=== PATIENT | female | born 1940 | race Caucasian/White ===

== ENCOUNTER 2020-08-19 12:45 | Observation (INO) | payer MEDICARE, SELFPAY ==
[2020-08-19] VITALS (10 sets, daily range): BP systolic 140–195; BP diastolic 62–119; PULSE 65–81; RESP 18–27; TEMP 36.7; O2SAT 93–97; BMI 31.6
--- NOTE | 2020-08-19 12:59 | CT_ITS ---
WS: [id number] CT HEAD NONCONTRAST HISTORY: Symptoms of Acute Stroke TECHNIQUE: Contiguous axial imaging performed through the brain in 2.5 mm imaging. Bone and soft tiss ue windows. Sagittal and coronal reformats reviewed. All CT scans at [facility] use at ast one of these dose optimization techniques: automated exposure control; mA and/or kV adjustment pe r patient size (includes targeted exams where dose is matched to clinical indication); or iterative r econstruction. DLP: 833.06 mGy.cm COMPARISON: MRI 11/10/[address] 10/21/2016 No acute intracranial hemorrhage, midline shift or mass effect. Moderate to severe atrophy and chronic ischemic changes. Small lacunar infarcts in the external capsu les and basal ganglia bilaterally. Not significantly changed since 2017. Mild bilateral cerebellar at rophy. Ventricles: Normal size with no hydrocephalus. Paranasal sinuses: As visualized are clear. Mastoid air cells: Well pneumatized. Calvarium and scalp: Skull is intact with no soft tissue edema or swelling. CT/CT head wo con* [id number] IMPRESSION: 1. No acute intracranial hemorrhage or edema. 2. Moderate to severe atrophy with chronic ischemic changes. Notified Mickey Addison MD at 08/19/2020 1:15 PM.
--- NOTE | 2020-08-19 12:59 | ECG_ITS ---
[facility] Test Date: 2020-08-19 Pat Name: Esther Miller Department: Room: Gender: Female Corporate Trainer: : 1940 Requested By: Mickey Addison Order Number: [id number] Richard MD: Rafal Kim M.D. Measurements Intervals [place] Rate: 79 P: 44 SC: 181 QRS: 66 QRSD: 92 T: 41 QT: 366 QTc: 420 Interpretive Statements SINUS RHYTHM POSSIBLE INFERIOR MYOCARDIAL INFARCTION , PROBABLY OLD [30 ms Q WAVE IN II/aVF] Compared to ECG 10/21/2016 16:58:21 No significant changes Electronically Signed On 08-19-2020 17:58:04 NURSE EDUCATOR by Rafal Kim M.D. [id number]
--- NOTE | 2020-08-19 12:59 | XR_ITS ---
WS: [id number] Portable AP semiupright chest, 08/19/2020 Clinical Data: altered mental status Comparison: Portable chest, 10/21/2016. Findings: No nodules, masses or effusions are seen. The heart is normal. The pulmonary vascularity is not increased. No pneumonia or pneumothorax is seen. The aortic arch and descending aorta show calci fication and tortuosity. Degenerative change of both shoulders is noted. XR/XR chest 1V portable [id number] Impression: Atherosclerosis.
--- NOTE | 2020-08-19 13:04 | ED_ITS ---
HPI - Neuro Symptoms/Deficit General: Chief Complaint: Neuro Symptoms/Deficit Stated Complaint: NEURO SYMPTOMS/THINKS HAD STROKE Time Seen by Provider: 08/19/20 12:58 History of Present Illness: HPI Narrative: The patient is a 80-year-old female who comes to the ER with right-sided facial droop and altered mental status. She has a history of Alzheimer's dementia, hypertension. Her says approximately 2-3 hours ago at home she began to act funny and not respond to her. She then kind of slumped over towards her right side and he brought her to the hospital. In the ER she is altered and has a right-sided facial droop. Denies previous stroke history Timing confirmed by: family member Location: right face History of same: No Severity: severe Quality: weak Review of Systems General: Reports: ROS unobtainable due to medical condition and ROS unobtainable due to mental status [facility] ED PFSH: Medical History Dementia HTN (hypertension) Surgical History Surgical history unknown Family History Other Family history unknown Social History Smoking and tobacco status: former smoker Alcohol intake: current Alcohol intake frequency: holidays/special occasions only Substance/Drug Use: never Lives independently: No Household members: spouse Marital status: Physical Exam Const: COMMON NORMALS: alert GENERAL APPEARANCE: anxious and combative ORIENTATION/CONSCIOUSNESS: Yes awake, Yes confused and Yes Other orientation findings (acute delirium, combative.) HENMT: COMMON NORMALS: normocephalic, external ears normal and Normal external nose present HEAD & SCALP: normal to inspection and normocephalic NOSE: Normal external nose present EXTERNAL EAR: Yes external ears normal MOUTH: Normal oral and palatal mucosa present THROAT: posterior oropharynx normal Eye: COMMON NORMALS: Equal, round and reactive pupils present and EOMs intact bilaterally GENERAL EYE: appearance normal, both eyes and all related structures PUPIL: Yes Equal, round and reactive pupils present Neck/C-Spine: COMMON NORMALS: full ROM, no lymphadenopathy, no meningeal signs and no JVD GENERAL: Yes normal visual inspection Lymph: LYMPHATIC: no lymphadenopathy noted Chest: COMMONS NORMALS: normal inspection of the chest and normal palpation of entire chest wall Resp: COMMON NORMALS: normal respiratory effort, No retractions, No use of accessory muscles, clear to auscultation bilaterally and percussion normal EFFORT & INSPECTION: Yes able to speak in complete sentences AUSCULTATION: clear to auscultation bilaterally PERCUSSION: percussion normal Cardio: COMMON NORMALS: no JVD, regular rate, regular rhythm, S1 normal heart sound present, S2 normal heart sound present and Peripheral pulses 2+ throughout RATE: regular rate RHYTHM: regular rhythm HEART SOUNDS: S1 normal heart sound present and S2 normal heart sound present PERIPHERAL PULSES: Peripheral pulses 2+ throughout GI: COMMON NORMALS: Normal to inspection, nondistended, normoactive bowel sounds present, Soft to palpation, non-tender and no masses INSPECTION: Yes normal to inspection PALPATION: Yes Soft to palpation : COMMON NORMALS: Yes no CVA tenderness BLADDER/KIDNEY EXAM: Yes no CVA tenderness Back/Pelvis: COMMON NORMALS: no CVA tenderness, thoracic and lumbar spine normal to inspection, no thoracic nor lumbar tenderness and thoraco-lumbar ROM normal Extremity: COMMON NORMALS: normal to inspection, full ROM, capillary refill normal, no joint enlargement and no pedal edema GENERAL: Yes normal exam except as noted Neuro: COMMON NORMALS: CN's II-XII intact bilaterally, moves all extremities, no focal motor deficits, no sensory deficits noted and gait normal SENSORIUM/ORIENTATION: Yes alert MENINGEAL SIGNS: Yes no meningeal signs OTHER: She came in initially acutely delirious. She has full strength in all extremities and she is wincing her face to the right. The initial thought was that this is possibly a facial droop but after she calmed down it completely resolved and she 30 minutes later was completely normal and answering questions alert and oriented x3. Psych: COMMON NORMALS: speech normal ATTITUDE: Yes uncooperative, Yes agitated and Yes Other attitude/behavior findings present (Psych) (Acute deliriu m) SPEECH: Yes normal speech Skin: COMMON NORMALS: no rashes or lesions noted GENERAL SKIN EXAM: no rashes or lesions noted Course Vital Signs: Vital signs: Vital Signs Temperature 98.0 F 08/19/20 12:59 Pulse Rate 79 08/19/20 18:22 Respiratory Rate 27 H 08/19/20 18:22 Blood Pressure 195/80 08/19/20 16:00 Pulse Oximetry 96 08/19/20 18:22 MDM - Neuro Symptoms/Deficit MDM Narrative: Medical decision making narrative: The patient came Roxanne initially as a stroke protocol with possible right facial droop. She has full power in her extremities and after 30 minutes it was clear she was wincing with her face to the right, not drooping. After her delirium resolved and she calm down she was alert and oriented x3 answering questions. While resting waiting for lab test she had an episode where she was satting 70% on room air for unknown reasons. Testing did not find any acute reasons for this and I thought she could benefit for observation in the hospital. Discussed with Dr. Kim who accepted her care. Lab Data: Labs: Lab Results 08/19/20 08/19/20 08/19/20 Range/Units 11:20 13:00 13:00 WBC 9.0 (4.0-10.0) 10^3/ uL RBC 5.21 (4.1-5.3) 10^6/u L Hgb 15.6 H (11.5-15.3) g/dL Hct 46.4 (37.0-47.0) % MCV 89.1 (81-99) fL MCH 29.9 (28.0-34.0) pg MCHC 33.6 (30.0-36.0) g/dL RDW 12.3 (12.1-15.1) % Plt Count 241 (130-400) 10^3/c mm MPV 9.9 (7.4-10.4) fL Neut % (Auto) 65.8 % Lymph % (Auto) 24.4 % [place] % (Auto) 8.4 % Eos % (Auto) 0.7 % Baso % (Auto) 0.4 % Neut # (Auto) 5.93 (1.8-7.7) 10^3/u L Lymph # (Auto) 2.2 (0.8-4.8) 10^3/u L [place] # (Auto) 0.8 (0.2-0.9) 10^3/u L Eos # (Auto) 0.1 (0.0-0.8) 10^3/u L Baso # (Auto) 0.0 (0.0-0.1) 10^3/u L Nucleated RBC % (a uto) 0 % Nucleated RBCs # 0.0 /100WBC PT 13.00 (12.1-14.9) SECO NDS INR 0.95 (0.8-1.2) APTT 32.5 (23.9-36.7) SECO NDS D-Dimer (0-0.59) ug/mIFE U Specimen Type Sample Site ABG pH (7.35-7.45) ABG pCO2 (35-45) mmHg ABG pO2 (80.0-100.0) mmH g ABG HCO3 (22-26) mmol/L ABG O2 Saturation ABG Base Excess (-2.0-2.0) mmol/ L Joseph Test A-a O2 Gradient (5-10) mmHg Hematocrit (37-47) % Hgb O2 Saturation (95-100) % Carboxyhemoglobin (0.4-20.1) %THgb Methemoglobin (0.4-1.5) % Total Hemoglobin (12-16) g/dL Ionized Calcium (1.1-1.4) mmol/L O2 Delivery Device O2 Liters/Min % FiO2 % Credit Officer ID Sodium (136-145) mmol/L Potassium (3.5-5.1) mmol/L Chloride (98-107) mmol/L Carbon Dioxide (22-29) mmol/L Anion Gap (5-19) BUN (8-23) mg/dL Creatinine (0.5-0.9) mg/dL GFR Calculation Glucose (65-115) mg/dL Calculated Osmolal ity (285-295) mOsm/k g Calcium (8.5-10.5) mg/dL Total Bilirubin (0.15-1.2) mg/dL AST (0-32) U/L ALT (0-33) U/L Alkaline Phosphata se (35-105) IU/L Total Protein (6.6-8.7) g/dL Albumin (3.5-5.2) g/dL Globulin (1.3-4.6) g/dL Urine Color Yellow (Yellow) Urine Appearance Clear (CLEAR) Urine pH 5.0 (5-7) Ur Specific Gravit y 1.020 (1.005-1.030) Urine Protein Neg (Negative) Urine Glucose (UA) Norm (Normal) Urine Ketones 1+ H (Negative) Urine Blood Neg (Negative) Urine Nitrate Negative (Negative) Urine Bilirubin Neg (Negative) Urine Urobilinogen Norm (Negative) mg/dL Ur Leukocyte Dionne ase Negative (Negative) Urine Opiates Scre en (Negative) ng/mL Ur Barbiturates Sc reen (Negative) ng/mL Ur Phencyclidine S crn (Negative) ng/mL Ur Amphetamines Sc reen (Negative) ng/mL U Benzodiazepines Scrn (Negative) ng/mL Urine Cocaine Scre en (Negative) ng/mL U Marijuana (THC) Screen (Negative) ng/mL SARS-CoV-2 Ag (Rap id) (Negative) 08/19/20 08/19/20 08/19/20 Range/Units 13:00 13:00 13:48 WBC (4.0-10.0) 10^3/ uL RBC (4.1-5.3) 10^6/u L Hgb (11.5-15.3) g/dL Hct (37.0-47.0) % MCV (81-99) fL MCH (28.0-34.0) pg MCHC (30.0-36.0) g/dL RDW (12.1-15.1) % Plt Count (130-400) 10^3/c mm MPV (7.4-10.4) fL Neut % (Auto) % Lymph % (Auto) % [place] % (Auto) % Eos % (Auto) % Baso % (Auto) % Neut # (Auto) (1.8-7.7) 10^3/u L Lymph # (Auto) (0.8-4.8) 10^3/u L [place] # (Auto) (0.2-0.9) 10^3/u L Eos # (Auto) (0.0-0.8) 10^3/u L Baso # (Auto) (0.0-0.1) 10^3/u L Nucleated RBC % (a uto) % Nucleated RBCs # /100WBC PT (12.1-14.9) SECO NDS INR (0.8-1.2) APTT (23.9-36.7) SECO NDS D-Dimer 0.43 (0-0.59) ug/mIFE U Specimen Type Sample Site ABG pH (7.35-7.45) ABG pCO2 (35-45) mmHg ABG pO2 (80.0-100.0) mmH g ABG HCO3 (22-26) mmol/L ABG O2 Saturation ABG Base Excess (-2.0-2.0) mmol/ L Joseph Test A-a O2 Gradient (5-10) mmHg Hematocrit (37-47) % Hgb O2 Saturation (95-100) % Carboxyhemoglobin (0.4-20.1) %THgb Methemoglobin (0.4-1.5) % Total Hemoglobin (12-16) g/dL Ionized Calcium (1.1-1.4) mmol/L O2 Delivery Device O2 Liters/Min % FiO2 % Credit Officer ID Sodium 140 (136-145) mmol/L Potassium 4.9 (3.5-5.1) mmol/L Chloride 103 (98-107) mmol/L Carbon Dioxide 28 (22-29) mmol/L Anion Gap 13.9 (5-19) BUN 17 (8-23) mg/dL Creatinine 1.0 H (0.5-0.9) mg/dL GFR Calculation Not Reportable Glucose 91 (65-115) mg/dL Calculated Osmolal ity 291 (285-295) mOsm/k g Calcium 10.4 (8.5-10.5) mg/dL Total Bilirubin 0.5 (0.15-1.2) mg/dL AST 13 (0-32) U/L ALT 9 (0-33) U/L Alkaline Phosphata se 84 (35-105) IU/L Total Protein 6.7 (6.6-8.7) g/dL Albumin 4.0 (3.5-5.2) g/dL Globulin 2.7 (1.3-4.6) g/dL Urine Color (Yellow) Urine Appearance (CLEAR) Urine pH (5-7) Ur Specific Gravit y (1.005-1.030) Urine Protein (Negative) Urine Glucose (UA) (Normal) Urine Ketones (Negative) Urine Blood (Negative) Urine Nitrate (Negative) Urine Bilirubin (Negative) Urine Urobilinogen (Negative) mg/dL Ur Leukocyte Dionne ase (Negative) Urine Opiates Scre en Negative (Negative) ng/mL Ur Barbiturates Sc reen Negative (Negative) ng/mL Ur Phencyclidine S crn Negative (Negative) ng/mL Ur Amphetamines Sc reen Negative (Negative) ng/mL U Benzodiazepines Scrn Negative (Negative) ng/mL Urine Cocaine Scre en Negative (Negative) ng/mL U Marijuana (THC) Screen Negative (Negative) ng/mL SARS-CoV-2 Ag (Rap id) (Negative) 08/19/20 08/19/20 Range/Units 15:08 16:00 WBC (4.0-10.0) 10^3/ uL RBC (4.1-5.3) 10^6/u L Hgb (11.5-15.3) g/dL Hct (37.0-47.0) % MCV (81-99) fL MCH (28.0-34.0) pg MCHC (30.0-36.0) g/dL RDW (12.1-15.1) % Plt Count (130-400) 10^3/c mm MPV (7.4-10.4) fL Neut % (Auto) % Lymph % (Auto) % [place] % (Auto) % Eos % (Auto) % Baso % (Auto) % Neut # (Auto) (1.8-7.7) 10^3/u L Lymph # (Auto) (0.8-4.8) 10^3/u L [place] # (Auto) (0.2-0.9) 10^3/u L Eos # (Auto) (0.0-0.8) 10^3/u L Baso # (Auto) (0.0-0.1) 10^3/u L Nucleated RBC % (a uto) % Nucleated RBCs # /100WBC PT (12.1-14.9) SECO NDS INR (0.8-1.2) APTT (23.9-36.7) SECO NDS D-Dimer (0-0.59) ug/mIFE U Specimen Type Arterial Sample Site Radial, right ABG pH 7.42 (7.35-7.45) ABG pCO2 40.7 (35-45) mmHg ABG pO2 146.0 H (80.0-100.0) mmH g ABG HCO3 26.4 H (22-26) mmol/L ABG O2 Saturation 99.7 ABG Base Excess 1.7 (-2.0-2.0) mmol/ L Joseph Test Pos A-a O2 Gradient 7.7 (5-10) mmHg Hematocrit 48.0 H (37-47) % Hgb O2 Saturation 98.8 (95-100) % Carboxyhemoglobin 0.6 (0.4-20.1) %THgb Methemoglobin 0.2 L (0.4-1.5) % Total Hemoglobin 15.7 (12-16) g/dL Ionized Calcium 1.3 (1.1-1.4) mmol/L O2 Delivery Device Nc O2 Liters/Min 4.0 % FiO2 36.0 % Credit Officer ID Gd Sodium 141.0 (136-145) mmol/L Potassium 3.6 (3.5-5.1) mmol/L Chloride (98-107) mmol/L Carbon Dioxide (22-29) mmol/L Anion Gap (5-19) BUN (8-23) mg/dL Creatinine (0.5-0.9) mg/dL GFR Calculation Glucose 94.0 (65-115) mg/dL Calculated Osmolal ity (285-295) mOsm/k g Calcium (8.5-10.5) mg/dL Total Bilirubin (0.15-1.2) mg/dL AST (0-32) U/L ALT (0-33) U/L Alkaline Phosphata se (35-105) IU/L Total Protein (6.6-8.7) g/dL Albumin (3.5-5.2) g/dL Globulin (1.3-4.6) g/dL Urine Color (Yellow) Urine Appearance (CLEAR) Urine pH (5-7) Ur Specific Gravit y (1.005-1.030) Urine Protein (Negative) Urine Glucose (UA) (Normal) Urine Ketones (Negative) Urine Blood (Negative) Urine Nitrate (Negative) Urine Bilirubin (Negative) Urine Urobilinogen (Negative) mg/dL Ur Leukocyte Dionne ase (Negative) Urine Opiates Scre en (Negative) ng/mL Ur Barbiturates Sc reen (Negative) ng/mL Ur Phencyclidine S crn (Negative) ng/mL Ur Amphetamines Sc reen (Negative) ng/mL U Benzodiazepines Scrn (Negative) ng/mL Urine Cocaine Scre en (Negative) ng/mL U Marijuana (THC) Screen (Negative) ng/mL SARS-CoV-2 Ag (Rap id) Negative (Negative) Discharge Plan Discharge Patient Disposition: Admitted As Inpatient Admit Provider: Hugh Guzman Clinical Impression: Altered mental status, Hypoxia, Delirium Condition: Stable Coding Level of Care Code ED Roofing Contractor for Spenser Martínez
[2020-08-19 13:11] LABS: Basophils % 0.4 %; Eosinophils # 0.1 10^3/uL (0.0-0.8); Eosinophils % 0.7 %; Hematocrit 46.4 % (37.0-47.0); Hemoglobin 15.6 g/dL (11.5-15.3); Lymphocytes # 2.2 10^3/uL (0.8-4.8); Lymphocytes % 24.4 %; Mean Corpuscular HGB Conc 33.6 g/dL (30.0-36.0); Mean Corpuscular Hemoglobin 29.9 pg (28.0-34.0); Mean Corpuscular Volume 89.1 fL (81-99); Mean Platelet Volume 9.9 fL (7.4-10.4); Monocytes # 0.8 10^3/uL (0.2-0.9); Monocytes % 8.4 %; Neutrophils # 5.93 10^3/uL (1.8-7.7); Neutrophils % 65.8 %; Nucleated Red Blood Cells % 0 %; Platelet Count 241 10^3/cmm (130-400); Red Blood Count 5.21 10^6/uL (4.1-5.3); Red Cell Distribution Width 12.3 % (12.1-15.1)
[2020-08-19 13:39] LABS: INR 0.95 (0.8-1.2)
[2020-08-19 13:40] LABS: Partial Thromboplastin Time 32.5 SECONDS (23.9-36.7)
[2020-08-19 13:53] LABS: Add Urine Microscopic? NO
[2020-08-19 14:23] LABS: Glucose Urine UA Norm (Normal); Protein Urine Neg (Negative); Urine Appearance Clear (CLEAR); Urine Color Yellow (Yellow)
[2020-08-19 14:24] LABS: Bilirubin Urine Neg (Negative); Blood Urine Neg (Negative); Ketones Urine 1+ (Negative); Leukocyte Esterase Urine Negative (Negative); Nitrate Urine Negative (Negative); Urobilinogen Urine Norm (Negative)
--- NOTE | 2020-08-19 14:42 | PC.NURSE ---
pt awake and O2 saturation 72% on room air. This nurse applied NC 4L and notified ED provider. ED provider in room
[2020-08-19 14:44] LABS: Alanine Aminotransferase 9 U/L (0-33); Alkaline Phosphatase 84 IU/L (35-105); Anion Gap 13.9 (5-19); Aspartate Amino Transferase 13 U/L (0-32); Blood Urea Nitrogen 17 mg/dL (8-23); Calcium 10.4 mg/dL (8.5-10.5); Carbon Dioxide 28 mmol/L (22-29); Chloride 103 mmol/L (98-107); Globulin 2.7 g/dL (1.3-4.6); Glucose 91 mg/dL (65-115); Osmolality Calculated 291 mOsm/kg (285-295); Potassium 4.9 mmol/L (3.5-5.1); Sodium 140 mmol/L (136-145); Total Bilirubin 0.5 mg/dL (0.15-1.2); Total Protein 6.7 g/dL (6.6-8.7)
--- NOTE | 2020-08-19 14:50 | PC.NURSE ---
Assisted patient to bedside commode and back to bed, with little to no difficulty.
[2020-08-19 14:59] LABS: Amphetamines Screen Urine Negative (Negative); Barbiturates Screen Urine Negative (Negative); Benzodiazepines Screen Urine Negative (Negative); Cocaine Screen Urine Negative (Negative); Opiate Screen Urine Negative (Negative); PCP Screen Urine Negative (Negative); THC Screen Urine Negative (Negative)
--- NOTE | 2020-08-19 15:17 | PC.NURSE ---
RT and nurse manager winter at bedside with patient and visitor.
[2020-08-19 15:23] LABS: ABG PCO2 40.7 mmHg (35-45); ABG PH Result 7.42 (7.35-7.45); Alveolar-Arterial Oxygen Gradi 7.7 mmHg (5-10); Base Excess ABG 1.7 mmol/L (-2.0-2.0); Blood Gas Allen Test Pos; Blood Gas Operator Identificat GD; Blood Gas Sample Site Radial, right; Blood Gas Sample Type Arterial; Carboxyhemoglobin 0.6 %THgb (0.4-20.1); HCO3 ABG 26.4 mmol/L (22-26); HGB O2 Sat 98.8 % (95-100); Ionized Calcium Level - ABG 1.3 mmol/L (1.1-1.4); Methemoglobin 0.2 % (0.4-1.5); Oxygen Device NC; Oxygen Saturation ABG 99.7; Potassium Level - ABG 3.6 mmol/L (3.5-5.0); Total Hemoglobin 15.7 g/dL (12-16)
[2020-08-19 17:12] LABS: D Dimer 0.43 ug/mIFEU (0-0.59)
[2020-08-19 17:20] LABS: SARS Covid-2 Antigen Negative (Negative)
--- NOTE | 2020-08-19 17:46 | P.HP_ITS ---
Providers/Chief Complaint Primary Care Provider: Micky Liz MD Chief Complaint: NEURO SYMPTOMS/THINKS HAD STROKE History of Present Illness Pleasant 80-year-old lady with Alzheimer's dementia, reported hypertension was brought for evaluation to ER after episode of change of mental status, reported noted not acting right at home, not responding to her . Reportedly then slumped over and so he brought her to the hospital. During my visit she is in the room by herself, she is awake, alert, confused about what city she is in, and does not remember the year. She knows she is in the hospital. She is not entirely sure why she is in the hospital. Her is not at the bedside, and unfortunately could not reach him nor the other family listed by phone. The risks reported possible brief convulsive episode at home. It appears that for prolonged time in ER she had decreased responsiveness, somewhat glazed over lo ok, with confusion. Transiently also noted hypoxia during that time down into the 70s on room air. She normally does not use supplemental oxygen. This had resolved, and she has subsequently had good oxygenation. She herself denies any complaints currently. She denies any trouble breathing, and states that if she would she would tell us. She denies any headache, any dizziness, nausea, vomiting, any vision changes. No chest pain or pressure. With otherwise unremarkable review of systems as below. She is fully alert, conversant, asking questions about how she may call for help if she needs it, and how to turn on and off the TV set. She does not remember having history of seizures, although home medications do list Keppra. As far as she knows she does not take any medications. CT of the head in ER with finding of moderate to severe atrophy with chronic ischemic changes, without acute hemorrhage or edema. Small lacunar infarcts in external capsules and basal ganglia bilaterally unchanged since 2017. Chest x- ray shows atherosclerosis. EKG with sinus rhythm, without acute findings. Possible Q wave in 2/aVF. She is afebrile. Blood pressure with 1 elevated episode 195/80, otherwise 140s-170s systolic. There is no leukocytosis, or major normality on CBC. Coagulation panel is normal including D-dimer. ABG 7.42/40 point 7/146/20 6.4. Sodium is 140. Creatinine 1. Otherwise unremarkable CMP. Urinalysis unremarkable. Urine drug screen unremarkable. Rapid COVID-19 negative. Keppra level pending. Observation service in the hospital due to transient decrease in saturation which is unexplained without normal requirement for supplemental oxygen in addition to transient alteration in mental status. Review of Systems Const: Denies: fever(s), chills, body aches or malaise Eyes: Denies: change in vision or eye redness ENMT: Denies: throat pain, oral sores or ear or mastoid pain Card: Denies: chest pain, edema, pre-syncope or dyspnea on exertion Resp: Denies: dyspnea, productive cough, change in phlegm color or hemoptysis GI: Denies: abdominal pain, nausea, vomiting, diarrhea, constipation, hematochezia or melena : Denies: flank pain, urinary frequency or hematuria Musc: Denies: back pain, joint swelling or joint redness Skin/Breast: Denies: rash, sores or new lesions Neuro: Denies: headache(s), numbness in extremities, weakness in extremities, dizziness, confusion or seizure-like activity Endo: Denies: polyuria or polydipsia Carlos/Lymph: Denies: easy bleeding or purpura All/Imm: Denies: urticaria, throat swelling or tongue swelling Medications/Allergies Home Medications Medication Instructions Recorded Confirmed Last Taken Type aspirin 81 mg PO DAILY@08/19/20 08/19/20 08/19/20 History levetiracetam 500 mg PO DAILY@09 08/19/20 08/19/20 08/19/20 History metoprolol tartrate 25 mg PO Q12H 08/19/20 08/19/20 08/19/20 History Allergies Allergy/AdvReac Type Severity Reaction Status Date / Time No Known Allergies Allergy Unverified 08/19/20 13:52 PFSH Acute PFSH: Medical History Dementia HTN (hypertension) Surgical History Surgical history unknown Family History Other Family history unknown Social History Smoking and tobacco status: former smoker Alcohol intake: current Alcohol intake frequency: holidays/special occasions only Substance/Drug Use: never Lives independently: No Household members: spouse Marital status: Vitals/I&O/Wt Last Vital Signs Temp 98.0 F 08/19/20 12:59 Pulse 74 08/19/20 16:00 Resp 25 H 08/19/20 16:00 BP 195/80 08/19/20 16:00 Pulse Ox 97 08/19/20 16:00 Weight last 48 hrs Weight 81.193 kg Physical Exam Const: COMMON NORMALS: no acute distress and alert; negative for patient oriented x3 GENERAL APPEARANCE: cooperative and comfortable ORIENTATION/CONSCIOUSNESS: Yes awake OTHER: Demenita - poor historian. Pleasant, conversant. HENMT: COMMON NORMALS: oropharynx normal Neck/C-Spine: COMMON NORMALS: no JVD Resp: COMMON NORMALS: normal respiratory effort and clear to auscultation bilaterally AUSCULTATION: clear to auscultation bilaterally Cardio: COMMON NORMALS: no JVD, regular rhythm, S1 normal heart sound present, S2 normal heart sound present and No murmurs present (Cardio) RHYTHM: regular rhythm HEART SOUNDS: S1 normal heart sound present and S2 normal heart sound present GI: COMMON NORMALS: Normal to inspection, nondistended, normoactive bowel sounds present, Soft to palpation and non-tender PALPATION: Yes Soft to palpation Extremity: COMMON NORMALS: no joint enlargement and no pedal edema Neuro: COMMON NORMALS: patient oriented x3 and moves all extremities Skin: COMMON NORMALS: no rashes or lesions noted GENERAL SKIN EXAM: no rashes or lesions noted Data : 08/19/20 13:00 08/19/20 13:00 A&P Assessment and plan (1) Altered mental status: Transient alteration in mental status at home with acute encephalopathy of unclear etiology. Unfortunately is not there while I was seeing her. Nursing staff is reporting that there may have been a brief convulsive episode. She was quite confused, not responding on initial visit. Appears perhaps may have been postictal state. She is currently awake and alert, cooperative, pleasant, but not oriented. I do not entirely know her baseline, but she certainly is not in any discomfort currently. She is not aware of history of seizure disorder, although does have Keppra listed on home medications. As far she is aware she does not take any medicatio ns. It is not clear whether she may have seizure history, and has not been taking medications. Keppra level is ordered and pending. We will follow up. We will maintain seizure precautions. Monitor. Continue Keppra. Her examination is otherwise nonfocal at this time. Does not appear to be a CVA . CT of the head does show some chronic previous lacunar strokes which are unchanged since 2017. No acute findings. She has no suggestion of acute infection. Transient hypoxia with suspect may be related to postictal state. This has resolved. She otherwise has no suggestion of acute pulmonary condition, with unremarkable chest x-ray, no signs of infection or sepsis, unremarkable D-dimer with low likelihood of PE. Blood pressure noted transiently elevated, but with improvement. Will monitor. Fall precautions. Seizure precautions. Status: Acute (2) Hypoxia: Transient hypoxia, possibly related to postictal state. She otherwise does not have indication of acute pulmonary condition. She has no chest pain. EKG does not show any signs of acute change. D-dimer is normal. Blood pressure transiently elevated, without any episodes of hypotension. We will monitor with continuous pulse oximetry given new transient hypoxia without normal need for supplemental oxygen. She does report history of smoking in the past. May benefit from PFT on outpatient basis, possibly a sleep study. Status: Acute Additional A&P Information Dementia HTN Attestations Medical Necessity Statement*: Place in observation. Coding Level of Care Code Acute Surgical Technology Instructor for Yrng Fwd Diagnoses Altered mental status R41.82 Hypoxia R09.02
--- NOTE | 2020-08-19 18:46 | PC.NURSE ---
Patient received from ED via stretcher. Patient able to ambulate with minimal to standby assist. NIH performed. Patient stated, I cannot remember anything about today. Does not know what year it is. Unsure how she came to be admitted to the hospital. Patient is currently directable and follow commands. Blood pressure remains elevated currently 201/84. Informed Dr Guzman at this time. Waiting for orders.
[2020-08-19] MEDS: metoprolol tartrate 25 mg Tablet PO (19:53)
[2020-08-19] MEDS: labetalol 5 mg/mL SDV 20mL 10 MG IVP (19:53)
--- NOTE | 2020-08-19 20:11 | PC.NURSE ---
Patient is reporting to feel very nervous . Patient is trembing and shaky. Patient is unable to remember anything at this time. Sent message to Dr Seay and he asked me to call night time doctor. Placed call to Dr Mckinney and received a telephone order for one time dose of Ativan 1mg IVP. RBVO now.
[2020-08-19] MEDS: LORazepam 2 mg/mL INJ 1 mL 1 MG IVP (20:15)
--- NOTE | 2020-08-19 21:15 | PC.NURSE ---
Patient refusing to have blood sugar checked this evening. Was withdrawing to have blood pressure checked. Was able to get blood pressure from right calf with assist x2. Patient settled back with eyes closed when blood pressure was completed. Ativan is allowing patient to relax with eyes closed. Trembling is resolved at this time. Prior to giving Ativan earlier patient remarked that there are things in life that we don't want to remember.
--- NOTE | 2020-08-19 21:20 | PC.NURSE ---
one on one sitter documentation on paper and with sitter at bedside.
[2020-08-19 21:36] LABS: Anion Gap 20.2 (5-19); Calcium 9.8 mg/dL (8.5-10.5); Carbon Dioxide 18 mmol/L (22-29); Chloride 104 mmol/L (98-107); Glucose 114 mg/dL (65-115); Potassium 4.2 mmol/L (3.5-5.1); Sodium 138 mmol/L (136-145)
[2020-08-19 22:00] LABS: Blood Urea Nitrogen 15 mg/dL (8-23); Osmolality Calculated 288 mOsm/kg (285-295)
[2020-08-20] VITALS (7 sets, daily range): BP systolic 140–170; BP diastolic 74–98; PULSE 69–83; RESP 15–24; TEMP 35.7–36.6; O2SAT 90–94
--- NOTE | 2020-08-20 01:38 | PC.NURSE ---
Patient awake. Assisted up to bathroom. Patient unable to answer questions appropriately. Patient appears very confused. Keeps singing she's in the [place] now. Wants to return to bed but will not get in the bed without direction. She knows its a bed, wants to lie down however she acts as if she does not remember how to lie down. Patient becoming more agitated and aggressive due to not remembering. Patient reports not remembering anything and is very aggrevated about this. Patient sat on bed and was assisted to lie down x1 assist. 1:1 sitter remains at bedside. Patient rolled to left side and is currently lying with eyes closed. Informed Dr Mckinney of increased agitation. Doctor placed order for Seroquel 25mg at bedtime with first dose to be given now. Patient is resting now. Will administered as soon as patient is more calm and cooperative.
--- NOTE | 2020-08-20 02:35 | PC.NURSE ---
Have been unable to keep oxygen, pulse ox on patient. Patient continuously removes them. Placed cover over IV access to left arm for protection of site. IV access was discontinued from right ac due to increased pain and redness. Patient does become aggravated due to inability to remember anything. 1:1 sitter remains at bedside.
--- NOTE | 2020-08-20 02:40 | PC.NURSE ---
First dose of Seroquel not given due to patient resting with eyes closed. Patient calm and cooperative at this time. Informed Dr Mckinney of this and is agreeable to not give for now.
[2020-08-20] MEDS: OLANZapine 10 mg VIAL IM (06:05)
--- NOTE | 2020-08-20 06:18 | PC.NURSE ---
Patient extremely agitated this morning. Insists on going home. Patient was finally able to tell me her full name and most of her birthday, did not get the year correct. Patient standing in doorway with 1:1 sitter and this RN redirecting her to the hospital environment. Patient states, I don't remember much but I know I am at the hospital because I can't remember. Does not understand why she is still here and believes she is being held prisoner. She stated, I am going to call the respiratory tech and have you all arrested. Informed Dr Mckinney and placed on order for Zyprexa which was administered as ordered. Explained to patient that medication was to help her to get well so she could eventually go home. Patient stated, I don't think I need a shot but I will take it so I can go home. Patient allowed administration of medication without argument. 1:1 sitter remains at bedside. Patient sitting on edge of bed waiting to see the doctor.
--- NOTE | 2020-08-20 06:36 | PC.NURSE ---
Patient refusing to have monitor on.
--- NOTE | 2020-08-20 07:48 | PC.NURSE ---
patient is resting in bed at this time. 1:1 sitter at bedside. assessment performed and charted. call light within reach. no needs identified at this time.
[2020-08-20] MEDS: aspirin 81 mg Chew Tablet PO (08:33)
[2020-08-20] MEDS: levETIRAcetam 500 mg Tablet PO (08:33)
[2020-08-20] MEDS: metoprolol tartrate 25 mg Tablet PO (08:34)
--- NOTE | 2020-08-20 10:42 | PC.CHAP ---
Pastoral Care Encounter/Spiritual Assessment Type of Contact [] Declined material assistant visit [] Patient/Family/Request visit [] Outpatient visit [] Follow-up visit [] Physician referral [] Code/Alert [] Routine visit [] Staff referral [] Actively dying [] Patient sleeping [] Family support [] [] Out of room [] Palliative care [] [] Receiving care in room [] Pre-surgical visit [] Trauma [] Long length of stay [] ICU visit [X] Other: under nurse supervison Relational/Emotional Strength [] Patient feels connected with others/family/visitors/staff [] Distress [] Loneliness/isolation [] Abandonment Spirituality of Patient [] Person of Cathy [] Attends Confucianism of their Cathy [] Believes in Prayer [] Reads Bible or Synagogue materials [] There are Spiritual issues to be addressed Hand Brim Ironer Interventions [] Prayer [] Active listening [] Non-anxious presence [] Spiritual/emotional support [] Crisis/trauma care [] Spiritual counseling [] Bereavement support [] Provided bereavement packet [] Provided Bible/devotional materials [] Provided toy/stuffed animal, coloring book to patient or family member [] Provided Communion [] Anointing/[place] [] Salvation [] Completed spiritual assessment [] Other: Impact on Illness or Injury [] Angry [] Fearful [] Anxious [] Often cries [] Exhaustion [] Unable to work [] Unable to attend jewish [] Unable to walk/stand [] Unable to read [] Unable to drive [] Unable to eat/drink [] Unable to sleep [] Unable to be with family [] Patient intubated [] Other: Summary under nurse supervison Time spent with patient 5 mins
[2020-08-20] MEDS: quetiapine 25 mg Tablet PO (15:12)
--- NOTE | 2020-08-20 15:54 | PC.NURSE ---
1340 patient became very agitated and confused. patient sitter at bedside with her, but patient was refusing to follow safety instructions. patient was attempted to be redirected and patient was still agitated and pulling telemetry and pulling at IV. Dr. Guzman called and gave verbal order for seroquel 25mg po now. Patient ambulated in the halls with staff. medication was then administered with the help of her asking her to take the medication. Patient is currently sitting in her room with the PSA awaiting discharge with the to their home.
--- NOTE | 2020-08-20 16:27 | PC.NURSE ---
patient has AMS, so discharge was given to . iv removed, tip intact, patient tolerated well.
--- NOTE | 2020-08-20 17:24 | PC.NURSE ---
respiratory notified nurse that patient did not qualify for oxygen.
--- NOTE | 2020-08-20 18:06 | PC.NURSE ---
patient taken out via wheelchair to private vehicle.
--- NOTE | 2020-08-20 21:08 | P.DS_ITS ---
Discharge Providers Date of Admission: 08/19/20 16:37 Date of Discharge: August 20, 2020 Attending Provider at Admission: Hugh Guzman Attending Provider at Discharge: Hugh Guzman Primary Care Provider: Micky Liz MD Diagnoses at Discharge Discharge Diagnosis (1) Altered mental status: Status: Acute Permanent problem details: Possible seizure. (2) Hypoxia: Status: Acute Permanent problem details: Transient hypoxia in ER without recurrence. Possible post-ictal state (3) Advancing dementia: Status: Acute Reason for Visit Reason for Visit: NEURO SYMPTOMS/THINKS HAD STROKE Hospital Course Hospital Course 80-year-old lady with advancing dementia, living at home with her was brought in for evaluation to ER. After an episode of decreased responsiveness, reported episode of shaking she was noted still with decreased responsiveness, slumped over in ER, possible transient facial droop was seen, but resolved. She also was noted to have transient hypoxia down to 70% on room air. She does not normally use supplemental oxygen. There appears to be perhaps smoking history in the past. She was transiently started on nasal cannula, but weaned off shortly after. PO2 on ABG 146, pH 7.42, PCO2 40.7. She was afebrile, without leukocytosis. Hemoglobin with minute elevation above normal at 15.6. With unremarkable CMP, sodium 138, potassium 4.2, BUN 15, creatinine 0.8. No noted hypoglycemia. Unremarkable UA. Unremarkable urine toxicology panel. Keppra level was requested, however, it is a send out and takes several days, and is still not back. Please follow-up level. She was continued on Keppra due to suspected seizure episode prior to arrival. No subsequent seizures noted in the hospital. She did have significant sundowning, with confusion, anxiety related to her dementia. The reports recently progressive dementia, making it more difficult for him to care for her at home. Chest x-ray on presentation with atherosclerosis. D-dimer was normal. EKG with sinus rhythm, Q waves in lead III and aVF. CT of the head with no acute hemorrhage or edema. Moderate to severe atrophy with chronic ischemic changes. Her mental status significantly improved the same evening. During my initial assessment she was a lready awake and alert, having absolutely no discomfort, no headache, dizziness, vision changes, no chest pain. No shortness of breath. No discomfort whatsoever. She knew she was in the hospital, but otherwise was not oriented. She was pleasant and interactive. She did get quite anxious about the blood pressure cuff squeezing her arm, telemetry alarm in the emergency room, and generally being out of her place of comfort. I suspect this contributed to her sundowning while in the hospital. She had no hallucinations, no inappropriate thought content, although it does appear that her dementia has been advancing to quite severe. She has been forgetful even of her . With progressive symptoms recently he has been having exceedingly difficult time keeping up with caring for her at home. Due to this he is attempting to make arrangements for placement to residential. We are for now requesting home health care for her as well to assist in reevaluation of medication compliance, seizure disorder, and assist with general care and bathing, since the amount of care she has been requiring has been making him go without sleep for prolonged periods of time. Due to suspected seizure episode, for now we are increasing her Keppra dose to 500 mg twice a day. After discussion with her due to intermittent episodes of severe anxiety, sometimes agitation, she started on quetiapine after discussion of risks and benefits including risks of premature mortality. We discussed consideration of placement to geriatric psychiatric facility, however, at this time her would prefer to avoid this. She is referred for follow-up with neurology in office and continued follow-up with primary care. Physical Exam Const: COMMON NORMALS: no acute distress and alert; negative for patient oriented x3 GENERAL APPEARANCE: cooperative and comfortable ORIENTATION/CONSCIOUSNESS: Yes awake OTHER: This morning she is awake, alert, disoriented apart from knowing she is in the hospital, joking around. Does not know why she is here. Denies any pain or discomfort, or any complaints. HENMT: COMMON NORMALS: oropharynx normal Neck/C-Spine: COMMON NORMALS: no JVD Resp: COMMON NORMALS: normal respiratory effort and clear to auscultation bilaterally AUSCULTATION: clear to auscultation bilaterally Cardio: COMMON NORMALS: no JVD, regular rhythm, S1 normal heart sound present, S2 normal heart sound present and No murmurs present (Cardio) RHYTHM: regular rhythm HEART SOUNDS: S1 normal heart sound present and S2 normal heart sound present GI: COMMON NORMALS: Normal to inspection, nondistended, normoactive bowel sounds present, Soft to palpation and non-tender PALPATION: Yes Soft to palpation Extremity: COMMON NORMALS: no joint enlargement and no pedal edema Neuro: COMMON NORMALS: moves all extremities; negative for patient oriented x3 SENSORIUM/ORIENTATION: Yes alert Skin: COMMON NORMALS: no rashes or lesions noted GENERAL SKIN EXAM: no rashes or lesions noted Discharge Data Data Completed and Pending: Completed Studies During Hospitalization Category Date Time Status CT head wo con* 7 0450 Stat Cat Scan 08/19/20 12:59 Completed XR chest 1V kenny ble [id number] Stat Exams 08/19/20 12:59 Completed Pending at discharge Category Date Time Status Levetiracetam Kep pra Stat Lab 08/19/20 16:40 Received Labs from last 24 hours 08/19/20 20:18 Sodium 138 Potassium 4.2 Chloride 104 Carbon Dioxide 18 L Anion Gap 20.2 H BUN 15 Creatinine 0.8 GFR Calculation Not Reportable Glucose 114 Calculated Osmolal ity 288 Calcium 9.8 Vitals: Last Vital Signs Temp 96.3 F L 08/20/20 16:26 Pulse 69 08/20/20 16:26 Resp 20 H 08/20/20 16:26 BP 169/83 08/20/20 16:26 Pulse Ox 94 08/20/20 17:29 Discharge Plan Discharge Patient Disposition: Home Health Service Condition: Stable Prescriptions: New quetiapine 25 mg Tablet 25 mg PO BEDTIME Qty: 30 RF: 0 Continued aspirin 81 mg Tablet,Chewable 81 mg PO DAILY@09 RF: 0 metoprolol tartrate 25 mg tablet 25 mg PO Q12H RF: 0 Changed levetiracetam 500 mg tablet 500 mg PO BID Qty: 60 RF: 0 Discharge Orders: Discharge Order (Routine); Ordered 08/20/20 Ordered By: Hugh Guzman Referrals: Sara Vora MD [Physician] - 09/03/20 1:00 pm (You have an appointment with Dr. Carey in her office on September 03 at 1:00pm) Micky Liz MD [Primary Care Provider] - 08/24/20 11:15 am (You have a hospital follow[facility] with Dr[facility] at [facility] on August 24 at 11:15am) Discharge Diet: Cardiac Discharge Activity: Increase activity as tolerated Patient Instructions: Quetiapine (By mouth), Dementia (GEN), Epilepsy (GEN), Hypertension (GEN) Activity Restrictions/Additional Instructions: In case of recurrence of seizure, please seek medical attention. Seizure medication dose is increased to twice a day. Seizure medication level had been ordered in the hospital, but has not returned as it takes several days. Please follow-up the level with your primary care doctor. In case you notice any trouble breathing, any chest pain or pressure, any fainting, or other concerning symptoms, please return to ER. With noted transiently low oxygen on presentation, this may have been related to postictal state after seizure, however, with reported prior smoking history, please discuss with your primary care doctor referral for pulmonary function test. Please discuss with your primary care doctor possible sleep study to assess and exclude sleep apnea. Please monitor blood pressures twice daily at home, write down values to bring to your appointment. Your blood pressure has been noted at times elevated. Please maintain cardiac diet and have your primary care doctor reassess as to whether initiating in blood pressure medication may be beneficial. 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
[2020-08-25 13:34] LABS: Levetiracetam Keppra 15.7 mcg/mL
== END 2020-08-20 18:12 | disposition home health service (06) ==
LOC: ER 13:44 → CSU 18:02
PROVIDERS: Admitting Provider Internal Medicine; Emergency Provider Family Medicine; PCP Family Medicine; Visit Provider Internal Medicine
DX: R41.82 Altered mental status, unspecified (principal); R09.02 Hypoxemia; G30.9 Alzheimer's disease, unspecified; F02.80 Dementia in other diseases classified elsewhere, unspecified severity, without behavioral disturbance, psychotic disturbance, mood disturbance, and anxiety; Z79.82 Long term (current) use of aspirin; I10 Essential (primary) hypertension; Z87.891 Personal history of nicotine dependence
CPT/HCPCS: 12345; 36415; 36600; 51701; 70450; 71045; 80048; 80051; 80053; 80177; 80306; 81003; 82330; 82805; 83605; 85025; 85378; 85610; 85730; 87426; 93005; 94664; 96372; 96374; 96375; 99283; 99285; G0378; J2060; J3490

== ENCOUNTER → 2020-09-01 10:14 | Outpatient (BNVA) | payer MEDICARE, SELFPAY | PROVIDERS: PCP Family Medicine; Referring Provider Internal Medicine; Visit Provider Specialist | DX: G40.309 Generalized idiopathic epilepsy and epileptic syndromes, not intractable, without status epilepticus (principal); G31.83 Neurocognitive disorder with Lewy bodies; F32.9 Major depressive disorder, single episode, unspecified; Z87.891 Personal history of nicotine dependence | CPT/HCPCS: 96116; 99205 ==

== ENCOUNTER 2021-02-02 01:02 | Emergency (ER) | payer MEDICARE, SELFPAY ==
[2021-02-02 01:11] VITALS: BP 214/102; PULSE 76; RESP 17; TEMP 36.9; O2SAT 99; BMI 32.5
--- NOTE | 2021-02-02 01:20 | W.ED.FALL ---
HPI - Fall General: Chief Complaint: Fall Stated Complaint: fall head and neck pain Time Seen by Provider: 02/02/21 01:05 History of Present Illness: HPI Narrative: Patient is a 81-year-old female comes to the ED via EMS after head injury. Patient has a history of Lewy body Parkinson's disease. Patient's is present. is providing the history. says that his and him got home and were getting out of the car and walking to the garage door. The said patient was looking at him and not paying attention to what was in front of her and she walked in to a metal bar on patient's tractor. The bar struck the side of patient's head. said patient appeared a little woozy afterwards but was not complaining of any pain. Denies any loss of consciousness. Couple hours later she started complaining of a lot of neck pain and that her head hurt. then called the EMS and had patient come here to the ED for further evaluation. Associated symptoms-after fall: Reports headache(s) and neck pain; Denies abdominal pain, chest pain or hematuria Review of Systems Const: Denies: fever(s), chills or fatigue Eyes: Denies: change in vision or eye discomfort ENMT: Denies: throat pain, odynophagia, nasal discharge or nasal congestion Card: Denies: chest pain, palpitations, edema, swelling of feet/ankles, dyspnea on exertion or orthopnea Resp: Denies: dyspnea, productive cough or non-productive cough GI: Denies: abdominal pain, nausea, vomiting, diarrhea, constipation or hematochezia : Denies: flank pain, dysuria or hematuria Musc: Reports: neck pain; Denies: back pain or extremity swelling Skin/Breast: Denies: rash or new lesions Neuro: Reports: headache(s); Denies: numbness in extremities or weakness in extremities PFS ED PFSH: Medical History Dementia HTN (hypertension) Surgical History Surgical history unknown Family History Other Family history unknown Social History Smoking and tobacco status: former smoker Alcohol intake: current Alcohol intake frequency: holidays/special occasions only Lives independently: No Household members: spouse Marital status: History of recent travel: No Physical Exam Const: COMMON NORMALS: alert EXAM LIMITATIONS: other limitations (Patient has Lewy body Parkinson's disease and advancing dementia) ORIENTATION/CONSCIOUSNESS: Yes oriented to person and Yes oriented to place HENMT: COMMON NORMALS: normocephalic and atraumatic HEAD & SCALP: normocephalic and atraumatic; no Gallegos's sign and no raccoon eyes MOUTH: Normal oral and palatal mucosa present THROAT: posterior oropharynx normal and uvula midline Eye: COMMON NORMALS: Equal, round and reactive pupils present and EOMs intact bilaterally PUPIL: Yes Equal, round and reactive pupils present Neck/C-Spine: COMMON NORMALS: supple GENERAL: Yes normal visual inspection Resp: COMMON NORMALS: normal respiratory effort, No retractions, No use of accessory muscles and clear to auscultation bilaterally AUSCULTATION: clear to auscultation bilaterally Cardio: COMMON NORMALS: regular rate, regular rhythm, S1 normal heart sound present, S2 normal heart sound present, No gallops present (Cardio), No clicks present (Cardio), No murmurs present (Cardio) and Peripheral pulses 2+ throughout RATE: regular rate RHYTHM: regular rhythm HEART SOUNDS: S1 normal heart sound present and S2 normal heart sound present PERIPHERAL PULSES: Peripheral pulses 2+ throughout GI: COMMON NORMALS: Normal to inspection, nondistended, normoactive bowel sounds present, Soft to palpation, non-tender and no masses PALPATION: Yes Soft to palpation : COMMON NORMALS: Yes no CVA tenderness BLADDER/KIDNEY EXAM: Yes no CVA tenderness Back/Pelvis: COMMON NORMALS: no CVA tenderness Extremity: COMMON NORMALS: normal to inspection Neuro: COMMON NORMALS: CN's II-XII intact bilaterally, moves all extremities, no focal motor deficits and no sensory deficits noted SENSORIUM/ORIENTATION: Yes alert, Yes oriented to person and Yes oriented to place SPEECH: speech normal SENSORY EXAM: Yes extremities (intact to light touch) MOTOR EXAM: 5/5 motor strength present throughout Skin: GENERAL SKIN EXAM: dry skin Course Reevaluation(s): Reevaluation #1: Patient had elevated blood pressures of 214/102 and 205/95. Patient was then given a dose of IV hydralazine and her blood pressure dropped to 170/85. Time: 03:29 Vital Signs: Vital signs: Vital Signs Temperature 98.4 F 02/02/21 01:11 Pulse Rate 85 02/02/21 02:23 Respiratory Rate 20 H 02/02/21 02:23 Blood Pressure 205/95 02/02/21 02:23 Pulse Oximetry 97 02/02/21 02:23 MDM - Fall MDM Narrative: Medical decision making narrative: Patient is an 81-year-old female comes to the ED after hitting her head on a metal object. Denies any loss of consciousness. Patient has a past medical history of Lewy body has Parkinson's disease and advancing dementia. Her main complaint was headache and neck pain. CT of head and CT of cervical spine showed no acute findings. Patient had elevated blood pressure of 214/102 and rest of vitals were stable. Patient was given a dose of Tylenol for headache and IV hydralazine. After given the hydralazine patient's blood pressure was 170/85. Patient was diagnosed with a headache due to a head injury without loss of consciousness and hypertensive urgency. She was discharged home with and told to follow-up with her PCP in 7 days for reevaluation. Return to ED precautions given. Patient and patient's understood and agreed with plan. Imaging Data^: CT Head: Attestation: I personally reviewed and interpreted this imaging study as follows: Radiologist's impression: [address] [address] [address] Scan Report Signed Patient: Esther Miller Unit #: [id number] : 1940 Age/Sex: 81 / F ADM Date: 02/02/21 Loc: ER Room/Bed: Attending Dr: Ordering Provider/Ordering MD: Dameon Faria Date of Service: 02/02/21 Procedure(s): CT head wo con* [id number] Accession Number(s): [id number] Report Number: [id number] PROCEDURE INFORMATION: Exam: CT Head Without Contrast Exam date and time: 02/02/2021 1:26 AM Age: 81 years old Clinical indication: Injury or trauma; Blunt trauma (contusions or hematomas); Patient HX: Fall. C/O head and neck pain. History of alzheimer's. Patient in distress. Could not keep still. ; Additional info: Head injury TECHNIQUE: Imaging protocol: Computed tomography of the head without contrast. Radiation optimization: All CT scans at this facility use at least one of these dose optimization techniques: automated exposure control; mA and/or kV adjustment per patient size (includes targeted exams where dose is matched to clinical indication); or iterative reconstruction. COMPARISON: CT head wo con* [id number] 08/19/2020 12:59 PM RADIATION DOSE METRICS: Total DLP (mGy-cm): 660.32 FINDINGS: Brain: There is mild parenchymal atrophy and chronic small vessel disease. No acute infarct or hemorrhage. Cerebral ventricles: No ventriculomegaly. Paranasal sinuses: Paranasal sinuses are clear. No air-fluid level. Mastoid air cells: Visualized mastoid air cells are clear. Bones/joints: No calvarial or skull base fracture. Soft tissues: Unremarkable. Other findings: The examination is limited by patient motion. CT/CT head wo con* [id number] IMPRESSION: 1. The examination is limited by patient motion. 2. No calvarial or skull base fracture. 3. No acute infarct or hemorrhage. 4. Mild parenchymal atrophy and chronic small vessel disease. Radiation Dose CTDIVOL = (mGy): DLP = 660.32 (mGy-cm) Dictated By: Joselito Vaughn Signed By: Joselito Vaughn Signed Date/Time: 02/02/21219 DD/ [address]: Attestation: I personally reviewed and interpreted this imaging study as follows: Radiologist's impression: [address] [address] [address] Scan Report Signed Patient: Esther Miller Unit #: [id number] : 1940 Age/Sex: 81 / F ADM Date: 02/02/21 Loc: ER Room/Bed: Attending Dr: Ordering Provider/Ordering MD: Dameon Faria Date of Service: 02/02/21 Procedure(s): CT cervical spin wo con* [id number] Accession Number(s): [id number] Report Number: [id number] PROCEDURE INFORMATION: Exam: CT Cervical Spine Without Contrast Exam date and time: 02/02/2021 1:26 AM Age: 81 years old Clinical indication: Injury or trauma; Blunt trauma; Patient HX: Fall. C/O head and neck pain. History of alzheimer's. Patient in distress. Could not keep still. ; Additional info: Neck pain after head injury TECHNIQUE: Imaging protocol: Computed tomography images of the cervical spine without contrast. Radiation optimization: All CT scans at this facility use at least one of these dose optimization techniques: automated exposure control; mA and/or kV adjustment per patient size (includes targeted exams where dose is matched to clinical indication); or iterative reconstruction. COMPARISON: CT head wo con* [id number] 08/19/2020 12:59 PM RADIATION DOSE METRICS: Total DLP (mGy-cm): 361.19 FINDINGS: Bones/joints: There is normal vertebral body alignment. There are normal vertebral body heights. The dens is intact. The lateral masses of C1 are symmetric. No fracture. Discs/Spinal canal/Neural foramina: Craniocervical articulation is normal. Atlantodental interval and prevertebral soft tissues are normal. There is moderate to severe disc space narrowing from C3-C7. Lungs: Lung apices are normal. Soft tissues: Unremarkable. CT/CT cervical spin wo con* [id number] IMPRESSION: 1. No fracture. 2. There is moderate to severe disc space narrowing from C3-C7. Radiation Dose CTDIVOL = (mGy): DLP = 361.19 (mGy-cm) Dictated By: Joselito Vaughn Signed By: Joselito Vaughn Signed Date/Time: 02/02/21221 DD/ 0 Discharge Plan Discharge Patient Disposition: Home Clinical Impression: Hypertensive urgency Headache Qualifiers: Headache type: post-traumatic Headache chronicity pattern: acute headache Intractability: not intractable Qualified Code(s): G44.319 - Acute post-traumatic headache, not intractable Head injury, acute, without loss of consciousness Qualifiers: Encounter type: initial encounter Qualified Code(s): S09.90XA - Unspecified injury of head, initial encounter Condition: Stable Prescriptions: No Action cholecalciferol (vitamin D3) 50 mcg (2,000 unit) capsule 50 mcg PO BID RF: 0 levetiracetam 500 mg tablet 750 mg PO BID Qty: 60 RF: 5 citalopram 20 mg tablet 20 mg PO DAILY Qty: 30 RF: 5 donepezil 5 mg tablet See Rx Instructions .ROUTE .COMPLEX Qty: 90 RF: 3 quetiapine 100 mg tablet See Rx Instructions .ROUTE .COMPLEX Qty: 90 RF: 3 aspirin 81 mg Tablet,Chewable 81 mg PO DAILY@09 RF: 0 metoprolol tartrate 25 mg tablet 25 mg PO Q12H RF: 0 Discharge Orders: Discharge ED (Routine); Ordered 02/02/21 Ordered By: Dameon Faria Referrals: Micky Liz MD [Primary Care Provider] - Discharge Diet: Regular Discharge Activity: Resume usual activity Patient Instructions: Headache, Minor Head Injury (ED) Activity Restrictions/Additional Instructions: Follow-up with medical provider as directed in 7 days for reevaluation. Continue taking all home medications as prescribed. Take [id number] Tylenol for any headaches. Return to the ER or your medical provider if condition worsens. Please read and understand discharge instructions. Thank you for choosing [facility] for your healthcare needs today. Please realize this is an emergency room and that we are providing you with a medical screening exam and this may not be complete and all inclusive of all the testing and or work up that you may need to determine your ailment or severity of your illness. It is very important that you follow up as instructed or that you return to the Emergency Department should you have concerns or if your condition changes or worsens in any way. Coding Level of Care Code ED Decision Unit Rn for [facility] Fwd Exam Detailed
--- NOTE | 2021-02-02 01:26 | CTR_ITS ---
PROCEDURE INFORMATION: Exam: CT Cervical Spine Without Contrast Exam date and time: 02/02/2021 1:26 AM Age: 81 years old Clinical indication: Injury or trauma; Blunt trauma; Patient HX: Fall. C/O head and neck pain. History of alzheimer's. Patient in distress. Could not keep still. ; Additional info: Neck pain after head injury TECHNIQUE: Imaging protocol: Computed tomography images of the cervical spine without contrast. Radiation optimization: All CT scans at this facility use at least one of these dose optimization techniques: automated exposure control; mA and/or kV adjustment per patient size (includes targeted exams where dose is matched to clinical indication); or iterative reconstruction. COMPARISON: CT head wo con* [id number] 08/19/2020 12:59 PM RADIATION DOSE METRICS: Total DLP (mGy-cm): 361.19 FINDINGS: Bones/joints: There is normal vertebral body alignment. There are normal vertebral body heights. The dens is intact. The lateral masses of C1 are symmetric. No fracture. Discs/Spinal canal/Neural foramina: Craniocervical articulation is normal. Atlantodental interval and prevertebral soft tissues are normal. There is moderate to severe disc space narrowing from C3-C7. Lungs: Lung apices are normal. Soft tissues: Unremarkable. CT/CT cervical spin wo con* [id number] IMPRESSION: 1. No fracture. 2. There is moderate to severe disc space narrowing from C3-C7. Radiation Dose CTDIVOL = (mGy): DLP = 361.19 (mGy-cm)
--- NOTE | 2021-02-02 01:26 | CTR_ITS ---
PROCEDURE INFORMATION: Exam: CT Head Without Contrast Exam date and time: 02/02/2021 1:26 AM Age: 81 years old Clinical indication: Injury or trauma; Blunt trauma (contusions or hematomas); Patient HX: Fall. C/O head and neck pain. History of alzheimer's. Patient in distress. Could not keep still. ; Additional info: Head injury TECHNIQUE: Imaging protocol: Computed tomography of the head without contrast. Radiation optimization: All CT scans at this facility use at least one of these dose optimization techniques: automated exposure control; mA and/or kV adjustment per patient size (includes targeted exams where dose is matched to clinical indication); or iterative reconstruction. COMPARISON: CT head wo con* [id number] 08/19/2020 12:59 PM RADIATION DOSE METRICS: Total DLP (mGy-cm): 660.32 FINDINGS: Brain: There is mild parenchymal atrophy and chronic small vessel disease. No acute infarct or hemorrhage. Cerebral ventricles: No ventriculomegaly. Paranasal sinuses: Paranasal sinuses are clear. No air-fluid level. Mastoid air cells: Visualized mastoid air cells are clear. Bones/joints: No calvarial or skull base fracture. Soft tissues: Unremarkable. Other findings: The examination is limited by patient motion. CT/CT head wo con* [id number] IMPRESSION: 1. The examination is limited by patient motion. 2. No calvarial or skull base fracture. 3. No acute infarct or hemorrhage. 4. Mild parenchymal atrophy and chronic small vessel disease. Radiation Dose CTDIVOL = (mGy): DLP = 660.32 (mGy-cm)
[2021-02-02 02:23] VITALS: BP 205/95; PULSE 85; RESP 20; O2SAT 97
[2021-02-02] MEDS: acetaminophen 325 mg Tablet 650 MG PO (03:00)
[2021-02-02] MEDS: hyDRALAzine 20 mg/mL INJ 1 mL 10 MG IVP (03:01)
[2021-02-02 03:48] VITALS: BP 158/81; PULSE 80; RESP 18; O2SAT 98
[2021-02-02 04:02] VITALS: BP 157/72; PULSE 89; RESP 16; O2SAT 95
== END 2021-02-02 04:04 | disposition home or self-care (01) ==
PROVIDERS: Emergency Provider Physician Assistant; PCP Family Medicine
DX: S09.90XA Unspecified injury of head, initial encounter (principal); G44.319 Acute post-traumatic headache, not intractable; I16.0 Hypertensive urgency; Z79.82 Long term (current) use of aspirin; I10 Essential (primary) hypertension; Z87.891 Personal history of nicotine dependence; G20 Parkinson's disease; F02.80 Dementia in other diseases classified elsewhere, unspecified severity, without behavioral disturbance, psychotic disturbance, mood disturbance, and anxiety; W22.8XXA Striking against or struck by other objects, initial encounter
CPT/HCPCS: 70450; 72125; 96374; 99283; J0360